=== PATIENT | female | born 1965 ===

== ENCOUNTER 2025-09-20 03:52 | Outpatient (CLI) | payer MEDICAID, SELFPAY ==
--- NOTE | 2025-09-20 13:11 | DI.RAD_ITS ---
Exam(s) XR ANKLE RT COMPLETE XR FOOT RT COMPLETE EXAM: XR ANKLE RT COMPLETE and XR foot RT complete CLINICAL HISTORY: ankle pain, rt M25.571. TECHNIQUE: 2D digital imaging was performed of the right foot and ankle. Six images were obtained. AP, lateral and oblique views were obtained. COMPARISON: There are no priors for comparison. FINDINGS: BONES: No acute fracture is present. No bony destructive lesion is seen. JOINTS: The ankle mortise is normally aligned. The joint spaces of the foot and ankle are well maintained. There is a bipartite medial sesamoid at the head of the 1st metatarsal. SOFT TISSUE: Normal. IMPRESSION: No acute abnormality. DATA REPOSITORY: RADIATION DOSE DELIVERED:
--- NOTE | 2025-09-20 13:11 | DI.RAD_ITS ---
Exam(s) XR FOOT LT COMPLETE XR ANKLE LT COMPLETE EXAM: XR ANKLE LT COMPLETE and XR foot LT complete CLINICAL HISTORY: ankle pain, M25.579 TECHNIQUE: 2D digital imaging was performed of the left foot and ankle. Six images were obtained. AP, lateral and oblique views were obtained. COMPARISON: There are no priors for comparison. FINDINGS: BONES: No acute fracture is present. No bony destructive lesion is seen. There is a small enthesophyte at the posterior calcaneus. There is a small plantar calcaneal spur. There is a bipartite medial sesamoid at the head of the 1st metatarsal. JOINTS:The ankle mortise is normally aligned. The joint spaces are well maintained in the foot and ankle. SOFT TISSUE: Normal. IMPRESSION: Calcaneal spurs. DATA REPOSITORY: RADIATION DOSE DELIVERED:
== END 2025-09-20 04:12 ==
LOC: DI 03:52
PROVIDERS: PCP Physician Assistant; Visit Provider Podiatrist
DX: M79.671 Pain in right foot (principal); M79.672 Pain in left foot; M25.571 Pain in right ankle and joints of right foot
CPT/HCPCS: 73610; 73630